=== PATIENT | female | born 1995 | race Caucasian/White ===

== ENCOUNTER 2017-02-06 08:10 | Emergency (ER) | payer BC ==
[~2017-02-06] VITALS: Ht 162.6 cm; Wt 77.1 kg
[~2017-02-06 08:10] MED LIST: BCPILLS PO; LISD60CA PO
[2017-02-06 08:15] VITALS: TEMP 37.3; Ht 162.6 cm; Wt 77.1 kg
[2017-02-06] MEDS ORDERED: ONDANSETRON INJ 2 MG/ML 2 ML VIAL IV STA (08:20)
[2017-02-06] MEDS ORDERED: SODIUM CHLORIDE 0.9% 1000ML 2,000 ML IV STA (08:20)
[2017-02-06] MEDS ORDERED: KETOROLAC TROMETHAMINE 30 MG/ML VIAL IV STA (08:41)
[2017-02-06 09:02] LABS: BASO % 0.1 %; BASO ABS # 0.01 K/uL (0-0.2); COMPLETE YES; HEMATOCRIT 39.9 % (37-47); IG% 0.1 %; LYMPH % 10.5 %; LYMPH ABS # 1.13 K/uL (1.2-3.4); MEAN CELL VOLUME 88.3 fL (80-100); MEAN CORPUSCULAR HEMOGLOBIN 29.9 pg (25-34); MEAN CORPUSCULAR HGB CONC 33.8 g/dl (32-36); MEAN PLATELET VOLUME 9.6 fL (7.4-10.4); MONO % 17.2 %; NEUT % 72.1 %; PLATELET COUNT 211 K/uL (130-400); RED BLOOD COUNT 4.52 M/uL (4.2-5.4); WHITE BLOOD COUNT 10.76 K/uL (4.8-10.8)
[2017-02-06 09:06] LABS: MANUAL MICROSCOPIC REQUIRED? NO; REVIEW REQ? NO; URINE APPEARANCE CLEAR (CLEAR); URINE BILIRUBIN NEG (NEG); URINE COLOR DK YELLOW; URINE EPITHELIAL CELL AUTO >30 /lpf (0-5); URINE NITRITE NEG (NEG); URINE PH 5.5 (4.5-7.5); URINE SPECIFIC GRAVITY 1.033 (1.000-1.030); UROBILINOGEN NEG (NEG); ZZUR CULT IF INDIC CLEAN CATCH YES
[2017-02-06 09:19] LABS: ALT/SGPT 18 U/L (12-78); BLOOD UREA NITROGEN 7 mg/dl (7-18); BUN/CREATININE RATIO 11.3 (10-20); CARBON DIOXIDE 26 mmol/L (21-32); CHLORIDE 104 mmol/L (98-107); CREATININE 0.61 mg/dl (0.60-1.20); GLUCOSE 86 mg/dl (70-99); POTASSIUM 3.8 mmol/L (3.5-5.1); SODIUM 136 mmol/L (136-145)
[2017-02-06 09:22] LABS: ALKALINE PHOSPHATASE 57 U/L (45-117); AST/SGOT 16 U/L (15-37)
[2017-02-06] MEDS ORDERED: LISD40CA PO (09:50)
[2017-02-06] MEDS ORDERED: LORA5TAB3 PO (09:50)
[2017-02-06] MEDS ORDERED: ONDA4TAB65 PO (11:40)
[2017-02-06 12:03] VITALS: BP 100/53; PULSE 68; O2SAT 98
--- NOTE | 2017-02-06 14:35 | EMERGENCY ROOM VISIT NOTE ---
History Report prepared by Todd: Natalia Alvarado Under the Supervision of: Dr. Aston Tejada D.O. First contact with patient: 08:15 Chief Complaint: VOMITING Stated Complaint: V, FATIGUE, HEAD PRESSURE, SORENESS History of Present Illness The patient is a 21 year old female who presents to the Emergency Room with complaints of persistent nausea and vomiting that began last evening. She currently rates her discomfort as a 7/10 in severity. The patient states that since last evening she had five episodes of vomiting. She additionally reports fatigue, generalized body aches and chills. The patient describes a throbbing head pain. She states that she has been experiencing neck pain. The patient states that she has been noticing sinus pressure, ear pain, and notes that she was bringing up green sputum. She reports developing diarrhea yesterday, noting three episodes. The patient denies any recent antibiotic use. She reports that twice last week she had two episodes of hematochezia. The patient reports recent heavier periods over the last several months, but denies any abnormal vaginal bleeding or discharge. She denies any recent travel or sick contacts. The patient denies getting a flu shot this year, but states that she has had a meningitis shot. She states that she tried taking Aleve, Pepto, and Claritin without relief of her symptoms. The patient additionally reports a sore throat and slight cough. Pt denies change in vision, fevers, chest pain, shortness of breath, pain with urination, and melena. Source of History: patient Onset: last evening Position: other (global) Symptom Intensity: 7/10 Quality: other (nausea and vomiting) Timing: other (persistent) Associated Symptoms: + chills, + headache, + sorethroat, + cough, + hematochezia, + diarrhea, + fatigue Note: Associated Symptoms: sinus pressure, ear pain, generalized body aches Review of Systems See HPI for pertinent positives & negatives. A total of 10 systems reviewed and were otherwise negative. Past Medical & Surgical Medical Problems: (1) Acute bronchitis (2) Acute febrile illness Family History No pertinent family history stated Social History Smoking Status: Never Smoker Drug Use: none Marital Status: single Occupation Status: [employer] student Current/Historical Medications Scheduled Lisdexamfetamine Dimesylate (Vyvanse), 40 MG PO DAILY Loratadine & Pseudoephedrine (Claritin-D 12 Hour), 1 TAB PO BID Scheduled PRN Ondansetron Hcl (Zofran), 4 MG PO TID PRN for Nausea Allergies Coded Allergies: No Known Allergies (Unverified , 02/06/17) Physical Exam Vital Signs Date Time Temp Pulse Resp B/P (MAP) Pulse Ox O2 Delivery O2 Flow Rate FiO2 02/06/17 12:03 68 16 100/53 98 02/06/17 10:54 66 16 100/53 99 Room Air 02/06/17 09:00 77 16 99/63 99 Room Air 02/06/17 08:15 37.3 98 17 87/76 97 Room Air Physical Exam GENERAL: alert, sitting up in bed, well appearing, well nourished, no distress, non-toxic HEAD: Minimal tenderness over frontal and maxillary sinuses EYE EXAM: normal conjunctiva. EARS: TMs clear bilaterally. OROPHARYNX: no exudate, no erythema, lips, buccal mucosa, and tongue normal and mucous membranes are moist NECK: supple, no nuchal rigidity, no adenopathy, non-tender LUNGS: Clear to auscultation. Normal chest wall mechanics HEART: no murmurs, S1 normal and S2 normal ABDOMEN: abdomen soft, non-tender, normo-active bowel sounds, no masses, no rebound or guarding. BACK: Back is symmetrical on inspection and there is no deformity, no midline tenderness, no CVA tenderness. SKIN: no rashes and no bruising UPPER EXTREMITIES: upper extremities are grossly normal. LOWER EXTREMITIES: No pitting edema. NEURO EXAM: Normal sensorium, cranial nerves II-XII grossly intact, normal speech, no gross weakness of arms, no gross weakness of legs. Medical Decision & Procedures Laboratory Results 02/06/17 08:50 Red Blood Count 4.52, Mean Corpuscular Volume 88.3, Mean Corpuscular Hemoglobin 29.9, Mean Corpuscular Hemoglobin Concent 33.8, Mean Platelet Volume 9.6, Neutrophils (%) (Auto) 72.1, Lymphocytes (%) (Auto) 10.5, Monocytes (%) (Auto) 17.2, Eosinophils (%) (Auto) 0.0, Basophils (%) (Auto) 0.1, Neutrophils # (Auto ) 7.76, Lymphocytes # (Auto) 1.13, Monocytes # (Auto) 1.85, Eosinophils # (Auto ) 0.00, Basophils # (Auto) 0.01 02/06/17 08:50 Test 02/06/17 08:50 White Blood Count 10.76 K/uL (4.8-10.8) Red Blood Count 4.52 M/uL (4.2-5.4) Hemoglobin 13.5 g/dL (12.0-16.0) Hematocrit 39.9 % (37-47) Mean Corpuscular Volume 88.3 fL (80-100) Mean Corpuscular Hemoglobin 29.9 pg (25-34) Mean Corpuscular Hemoglobin Concent 33.8 g/dl (32-36) Platelet Count 211 K/uL (130-400) Mean Platelet Volume 9.6 fL (7.4-10.4) Neutrophils (%) (Auto) 72.1 % Lymphocytes (%) (Auto) 10.5 % Monocytes (%) (Auto) 17.2 % Eosinophils (%) (Auto) 0.0 % Basophils (%) (Auto) 0.1 % Neutrophils # (Auto) 7.76 K/uL (1.4-6.5) Lymphocytes # (Auto) 1.13 K/uL (1.2-3.4) Monocytes # (Auto) 1.85 K/uL (0.11-0.59) Eosinophils # (Auto) 0.00 K/uL (0-0.5) Basophils # (Auto) 0.01 K/uL (0-0.2) RDW Standard Deviation 40.6 fL (36.4-46.3) RDW Coefficient of Variation 12.6 % (11.5-14.5) Immature Granulocyte % (Auto) 0.1 % Immature Granulocyte # (Auto) 0.01 K/uL (0.00-0.02) Urine Color DK YELLOW Urine Appearance CLEAR (CLEAR) Urine pH 5.5 (4.5-7.5) Urine Specific Nora 1.033 (1.000-1.030) Urine Protein NEG (NEG) Urine Glucose (UA) NEG (NEG) Urine Ketones NEG (NEG) Urine Occult Blood NEG (NEG) Urine Nitrite NEG (NEG) Urine Bilirubin NEG (NEG) Urine Urobilinogen NEG (NEG) Urine Leukocyte Esterase NEG (NEG) Urine WBC (Auto) 1-5 /hpf (0-5) Urine RBC (Auto) 5-10 /hpf (0-4) Urine Hyaline Casts (Auto) 5-10 /lpf (0-5) Urine Epithelial Cells (Auto) >30 /lpf (0-5) Urine Bacteria (Auto) 1+ (NEG) Urine Test NEG (NEG) Anion Gap 6.0 mmol/L (3-11) Est Creatinine Clear Calc Drug Dose 147.9 ml/min Estimated GFR () > 150.0 Estimated GFR (Non- 130.5 BUN/Creatinine Ratio 11.3 (10-20) Calcium Level 9.0 mg/dl (8.5-10.1) Total Bilirubin 1.0 mg/dl (0.2-1) Direct Bilirubin 0.2 mg/dl (0-0.2) Aspartate Amino Transf (AST/SGOT) 16 U/L (15-37) Alanine Aminotransferase (ALT/SGPT) 18 U/L (12-78) Alkaline Phosphatase 57 U/L (45-117) Total Protein 7.3 gm/dl (6.4-8.2) Albumin 4.0 gm/dl (3.4-5.0) Lipase 80 U/L (73-393) Laboratory results per my review. Medications Administered Medications (Trade) Dose Ordered Sig/Елена Route Start Time Stop Time Status Last Admin Dose Admin Sodium Chloride 2,000 ml @ 999 mls/hr Q2H1M STAT IV 02/06/17 08:20 02/06/17 10:20 DC 02/06/17 08:55 999 MLS/HR Ondansetron HCl (Zofran Inj) 4 mg NOW STAT IV 02/06/17 08:20 02/06/17 08:21 DC 02/06/17 08:57 4 MG Ketorolac Tromethamine (Toradol Inj) 30 mg NOW STAT IV 02/06/17 08:41 02/06/17 08:42 DC 02/06/17 08:57 30 MG ED Course ED COURSE: Vital signs were reviewed and showed hypotensive The patients medical record was reviewed The above diagnostic studies were performed and reviewed. ED treatments and interventions as stated above. 0816: The patient was evaluated in room A3. A complete history and physical examination was performed by the medical student. 0820: Ordered Zofran Inj 4 mg IV, Sodium Chloride 2000 ml @ 999 mls/hr IV. 0832: The patient was evaluated in room A3. A complete history and physical examination was performed. 0841: Ordered Toradol Inj 30 mg IV. 1022: Per the medical student, the patient is doing well and is going to have a PO trial. 1135: Upon reevaluation, the patient is resting comfortably.I discussed my findings with the patient and she understands and agrees with the treatment plan. Based on the patients age, coexisting illnesses, exam and lab findings the decision to treat as an outpatient was made. The patient remained stable while under my care. The patient appeared well at the time of discharge. Medical Decision Differential diagnoses includes but is not limited to gastritis, peptic ulcer disease, GERD, gallbladder disease, pancreatitis, small bowel obstruction, acute coronary syndrome, pericarditis, ischemic bowel, irritable bowel disease, irritable bowel syndrome, appendicitis, diverticulitis, malignancy, hernia, urinary tract infection, torsion, /ectopic (if female), perforation, trauma, infectious. Patient is a 21-year-old female that presents to ER for vomiting 5 times since last night associated with diarrhea. She had per red blood per rectum over weeks ago. No smoking past medical history. She completely neurologically intact. Abdominal exam is benign. CBC all BMP, LFTs, bilirubin lipase unremarkable. UA is contaminated with multiple epithelial cells. No white cells to suggest a UTI. is negative. No nuchal rigidity. No signs meningitis or encephalitis. Afebrile. Minimal tenderness of the frontal sinuses present less than 24 hours. She was given fluids and Toradol and felt significant better. She is discharged with Zofran following tolerating Gatorade to follow up with S. Discussed with Pt concerning signs and symptoms to watch out for. Pt was instructed to follow up with their PCP and discussed with the patient their option to return to the ED at anytime for persistent or worsening symptoms. The appropriate anticipatory guidance and out-patient management, including indications for return to the emergency department, were explained at length to the patient and understood. Medication Reconcilliation Current Medication List: was personally reviewed by me Blood Pressure Screening Patient's blood pressure: Low blood pressure Blood pressure disposition: Did not require urgent referral Impression Primary Impression: Nausea, vomiting, and diarrhea Scribe Attestation The scribe's documentation has been prepared under my direction and personally reviewed by me in its entirety. I confirm that the note above accurately reflects all work, treatment, procedures, and medical decision making performed by me. Departure Information Dispostion Home / Self-Care Prescriptions Ondansetron Hcl (ZOFRAN) 4 Mg Tab 4 MG PO TID Y for Nausea, #20 TAB Prov: Aston Tejada, DO 02/06/17 Referrals No Doctor, Assigned (PCP) Forms HOME CARE DOCUMENTATION FORM, IMPORTANT VISIT INFORMATION Patient Instructions ED Gastroenteritis Viral, My [facility] Additional Instructions Please follow up with your primary care doctor or if you are a student, [facility] with in the next 24 hours. Any worsening of your symptoms, please return to the ED immediately. This includes any fevers greater than 100.4, worsening pain, chest pain, shortness breath, persistent nausea, vomiting, unable to eat or drink, or any other concerning signs or symptoms from your standpoint. He states Zofran every 6-8 hours as needed for nausea/vomiting.
== END 2017-02-06 12:03 | disposition home or self-care (01) ==
LOC: C.EDB 08:12 → C.EDA 12:03
DX: R11.2 Nausea with vomiting, unspecified (principal); R19.7 Diarrhea, unspecified

== ENCOUNTER 2017-06-07 21:55 | Emergency (ER) | payer BC ==
[~2017-06-07] VITALS: Ht 162.6 cm; Wt 79.2 kg
[~2017-06-07 21:55] MED LIST changes: -BCPILLS PO; +LISD40CA PO; -LISD60CA PO; +LORA5TAB3 PO
[2017-06-07 22:00] VITALS: Ht 162.6 cm; Wt 79.2 kg
[2017-06-07] MEDS ORDERED: SODIUM CHLORIDE 0.9% 1000ML 2,000 ML IV STA (22:06)
[2017-06-07] MEDS ORDERED: ONDANSETRON INJ 2 MG/ML 2 ML VIAL IV STA (22:06)
[2017-06-07] MEDS ORDERED: KETOROLAC TROMETHAMINE 30 MG/ML VIAL IV STA (22:06)
[2017-06-07] MEDS ORDERED: CLR10 PO (22:27)
[2017-06-07 22:34] LABS: BASO % 0.4 %; BASO ABS # 0.03 K/uL (0-0.2); EOS % 0.6 %; EOS ABS # 0.05 K/uL (0-0.5); HEMATOCRIT 39.9 % (37-47); HEMOGLOBIN 13.6 g/dL (12.0-16.0); IG# 0.03 K/uL (0.00-0.02); LYMPH % 10.9 %; LYMPH ABS # 0.92 K/uL (1.2-3.4); MEAN CELL VOLUME 87.1 fL (80-100); MEAN CORPUSCULAR HEMOGLOBIN 29.7 pg (25-34); MEAN CORPUSCULAR HGB CONC 34.1 g/dl (32-36); MEAN PLATELET VOLUME 9.8 fL (7.4-10.4); MONO % 12.8 %; MONO ABS # 1.08 K/uL (0.11-0.59); NEUT % 74.9 %; NEUT ABS # 6.34 K/uL (1.4-6.5); PLATELET COUNT 222 K/uL (130-400); RED CELL DISTRIBUTION WIDTH CV 12.7 % (11.5-14.5); RED CELL DISTRIBUTION WIDTH SD 40.5 fL (36.4-46.3); WHITE BLOOD COUNT 8.45 K/uL (4.8-10.8)
--- NOTE | 2017-06-07 23:02 | DIAGNOSTIC IMAGING REPORT ---
CHEST 2 VIEWS ROUTINE HISTORY: 21 years-old Female cough/fever acute cough and fever COMPARISON: Chest radiographs 06/16/2015 TECHNIQUE: PA and lateral views of the chest FINDINGS: Cardiac mediastinal and hilar silhouettes are within normal limits. No pneumothorax, pleural effusion, focal airspace consolidation or overt pulmonary edema. Bones of the chest appear grossly intact. IMPRESSION: No acute process. The above report was generated using voice recognition software. It may contain grammatical, syntax or spelling errors. Electronically signed by: Hebert Mcneal M.D. 06/07/2017 11:01 PM Dictated Date/Time: 06/07/2017 11:00 PM
[2017-06-07 23:04] LABS: CALCIUM 8.6 mg/dl (8.5-10.1); CREATININE 0.65 mg/dl (0.60-1.20); POTASSIUM 3.7 mmol/L (3.5-5.1)
[2017-06-07 23:05] LABS: INFLUENZA B ANTIGEN Neg for Influ B (NEG)
[2017-06-07] MEDS ORDERED: ALBUT/IPRATROP 3MG/0.5MG NEB 3 ML VIAL INH STA (23:20)
[2017-06-07 23:58] VITALS: BP 118/69; PULSE 88; TEMP 37.2; O2SAT 97
[2017-06-08] MEDS ORDERED: ALBUTEROL HFA 8 GM INHALER INH STA (00:03)
--- NOTE | 2017-06-08 02:04 | EMERGENCY ROOM VISIT NOTE ---
History First contact with patient: 22:03 Chief Complaint: FLU LIKE SX Stated Complaint: VOMITING, COUGH, HEADACHE (FLU LIKE) History of Present Illness The patient is a 21 year old female who presents to the Emergency Room with complaints of fever, chills, cough, congestion, nausea and vomiting for the past day. Patient did receive the flu vaccine. Patient denies chest pain, dyspnea, neck stiffness, sore throat, earache, abdominal pain, diarrhea. She is tolerating by mouth fluids and food. No recent travel. Patient took Tylenol a few hours prior to arrival. Review of Systems See HPI for pertinent positives & negatives. A total of 10 systems reviewed and were otherwise negative. Past Medical/Surgical History Medical Problems: (1) Acute bronchitis (2) Acute febrile illness Social History Smoking Status: Never Smoker Drug Use: none Marital Status: single Occupation Status: [employer] student Current/Historical Medications Scheduled Lisdexamfetamine Dimesylate (Vyvanse), 40 MG PO DAILY Scheduled PRN Loratadine (Claritin), 10 MG PO DAILY PRN for Seasonal Allergies Physical Exam Vital Signs Date Time Temp Pulse Resp B/P (MAP) Pulse Ox O2 Delivery O2 Flow Rate FiO2 06/07/17 23:58 37.2 88 16 118/69 97 Room Air 06/07/17 23:14 94 20 153/72 97 06/07/17 22:00 37.9 99 16 112/67 98 Room Air Physical Exam VITALS: Vitals are noted on the nurse's note and reviewed by myself. Vital signs febrile. GENERAL: Pleasant female mildly ill-appearing, in no acute distress, nondiaphoretic, well-developed well-nourished. SKIN: The skin was without rashes, erythema, edema, or bruising. There is no tenting of the skin. Capillary reflex less than 2 seconds. HEAD: Normocephalic atraumatic. EARS: External auditory canals clear, tympanic membranes pearly serrano without erythema or effusion bilaterally. EYES: Pupils equal round and reactive to light and accommodation. Conjunctivae without injection, sclerae without icterus. Extraocular movements intact. NOSE: Patent, turbinates without inflammation or discharge. No sinus tenderness. MOUTH: Mucous membranes mildly dry Pharynx without erythema or exudate. Uvula midline. Airway patent. Tongue does not deviate. NECK: Supple without nuchal rigidity. No lymphadenopathy. No thyromegaly. Cervical spine is nontender. No JVD. No meningeal signs HEART: Regular rate and rhythm without murmurs gallops or rubs. LUNGS: Clear to auscultation bilaterally without wheezes, rales or rhonchi. No dullness to percussion. No retractions or accessory muscle use. ABDOMEN: Positive bowel sounds x 4. Normal tympanic percussion. Soft, nontender, without masses or organomegaly. Hernandez sign negative. No guarding or rebound tenderness. MUSCULOSKELETAL: No muscle atrophy, erythema, or edema noted. NEURO: Patient was alert and oriented to person place and time. Normal sensation to light and sharp touch. No focal neurological deficits. Medical Decision & Procedures Laboratory Results 06/07/17 22:20 Red Blood Count 4.58, Mean Corpuscular Volume 87.1, Mean Corpuscular Hemoglobin 29.7, Mean Corpuscular Hemoglobin Concent 34.1, Mean Platelet Volume 9.8, Neutrophils (%) (Auto) 74.9, Lymphocytes (%) (Auto) 10.9, Monocytes (%) (Auto) 12.8, Eosinophils (%) (Auto) 0.6, Basophils (%) (Auto) 0.4, Neutrophils # (Auto ) 6.34, Lymphocytes # (Auto) 0.92, Monocytes # (Auto) 1.08, Eosinophils # (Auto ) 0.05, Basophils # (Auto) 0.03 06/07/17 22:20 Test 06/07/17 22:20 White Blood Count 8.45 K/uL (4.8-10.8) Red Blood Count 4.58 M/uL (4.2-5.4) Hemoglobin 13.6 g/dL (12.0-16.0) Hematocrit 39.9 % (37-47) Mean Corpuscular Volume 87.1 fL (80-100) Mean Corpuscular Hemoglobin 29.7 pg (25-34) Mean Corpuscular Hemoglobin Concent 34.1 g/dl (32-36) Platelet Count 222 K/uL (130-400) Mean Platelet Volume 9.8 fL (7.4-10.4) Neutrophils (%) (Auto) 74.9 % Lymphocytes (%) (Auto) 10.9 % Monocytes (%) (Auto) 12.8 % Eosinophils (%) (Auto) 0.6 % Basophils (%) (Auto) 0.4 % Neutrophils # (Auto) 6.34 K/uL (1.4-6.5) Lymphocytes # (Auto) 0.92 K/uL (1.2-3.4) Monocytes # (Auto) 1.08 K/uL (0.11-0.59) Eosinophils # (Auto) 0.05 K/uL (0-0.5) Basophils # (Auto) 0.03 K/uL (0-0.2) RDW Standard Deviation 40.5 fL (36.4-46.3) RDW Coefficient of Variation 12.7 % (11.5-14.5) Immature Granulocyte % (Auto) 0.4 % Immature Granulocyte # (Auto) 0.03 K/uL (0.00-0.02) Anion Gap 7.0 mmol/L (3-11) Est Creatinine Clear Calc Drug Dose 140.6 ml/min Estimated GFR () 148.1 Estimated GFR (Non- 127.8 BUN/Creatinine Ratio 12.6 (10-20) Calcium Level 8.6 mg/dl (8.5-10.1) Human Chorionic Gonadotropin, Qual NEG (NEG) Influenza Type A Antigen Neg for Influ A (NEG) Influenza Type B Antigen Neg for Influ B (NEG) Medications Administered Medications (Trade) Dose Ordered Sig/Елена Route Start Time Stop Time Status Last Admin Dose Admin Sodium Chloride 2,000 ml @ 999 mls/hr Q2H1M STAT IV 06/07/17 22:06 06/08/17 00:06 DC 06/07/17 22:06 999 MLS/HR Ondansetron HCl (Zofran Inj) 4 mg NOW STAT IV 06/07/17 22:06 06/07/17 22:08 DC 06/07/17 22:30 4 MG Ketorolac Tromethamine (Toradol Inj) 30 mg NOW STAT IV 06/07/17 22:06 06/07/17 22:08 DC 06/07/17 22:31 30 MG Albuterol/ Ipratropium (Duoneb) 3 ml NOW STAT INH 06/07/17 23:20 06/07/17 23:21 DC 06/07/17 23:32 3 ML Albuterol (Ventolin Hfa Inhaler) 2 puffs ONE STAT INH 06/08/17 00:03 06/08/17 00:04 DC 06/08/17 00:06 2 PUFFS ED Course Prior records/ancillary studies reviewed. Triage Nursing notes reviewed. The patient's history was concerning for fever. Differential diagnosis: Etiologies such as viral syndrome, otitis, pharyngitis, pneumonia, influenza, meningitis, urinary tract infection, sepsis, bacteremia, as well as others were entertained. Physical examination: Patient is alert, interactive and drinking fluids ER treatment provided: IV fluids, Toradol, nebulizer On reassessment the patient felt better. Diagnostics interpreted by me: The labs revealed negative influenza Imaging studies: Chest x-ray with no acute consolidation, pneumothorax or free air This appears to be consistent with influenza-like illness. Patient felt much better after being medicated as above. No pneumonia on x-ray. No signs of meningitis. She is advised to take cold medicines as needed, rest, stay well- hydrated and to follow-up health services in a few days or here in the ER sooner for high fevers, lethargy, neck stiffness, worsening signs or symptoms or as needed. She is advised to stay at home until she is 24 hours fever free as she is contagious. By the evaluation outlined above emergent etiologies such as otitis, pharyngitis, pneumonia, meningitis, urinary tract infection, sepsis, bacteremia, as well as others were deemed relatively unlikely. The pt informed about the findings as listed above. All questions were answered and pleased with the treatment. Return instructions were outlined and the patient was discharged in stable condition. Case reviewed with my attending Referral: The patient was referred back to their primary care physician/[facility] for follow-up in 2 to 3 days for a recheck of the current condition. Medical Decision As above Medication Reconcilliation Current Medication List: was personally reviewed by me Blood Pressure Screening Patient's blood pressure: Normal blood pressure Impression Primary Impression: Influenza Departure Information Dispostion Home / Self-Care Condition GOOD Forms HOME CARE DOCUMENTATION FORM, School Instructions, Return To School: 3 days IMPORTANT VISIT INFORMATION Patient Instructions My [facility], ED Flu Additional Instructions Acetaminophen(Tylenol) may be used for fever or pain. Use 1000mg every six hours as needed. Avoid using more than 3000mg in a 24 hour period. (AND/OR) Ibuprofen(Motrin, Advil) may be used for fever or pain. Use 600mg every six hours as needed. Take with food. Avoid using more than 2400mg in a 24 hour period. Do not use 2400mg per day for more than three consecutive days without physician direction. Prolonged inappropriate use can lead to stomach upset or ulcers. Afrin nasal spray: 2-3 sprays to each nostril twice daily as needed for congestion. Do not use for more than 3-4 days because it can lead to worsening rebound congestion. Pseudoephedrine(Sudaphed): 30-60mg every 6 hours as needed for nasal congestion. Do not take this with other stimulant products or supplements. Albuterol Inhaler: Take 2 puffs four times daily for seven days, then as needed. Rest and drink plenty of fluids. Controlling your fever with Tylenol and Ibuprofen as above will make you feel better. Wash your hands after nose blowing, sneezing, or coughing. Most germs are spread through contact, therefore improper hygiene may result in your close contacts and loved ones becoming ill just like you. Continue current medications. Return to the ER for severe headache, neck stiffness, chest pain, difficulty breathing, fevers, vomiting, worsening of your condition, or as needed. Follow up with your primary physician this week for a recheck of your current condition. School Instructions Return To School: 3 days
== END 2017-06-08 00:07 | disposition home or self-care (01) ==
LOC: C.EDB 21:56
DX: J11.1 Influenza due to unidentified influenza virus with other respiratory manifestations (principal); Z87.09 Personal history of other diseases of the respiratory system; Z79.899 Other long term (current) drug therapy